=== PATIENT | male | born 1975 | race Caucasian/White ===

== ENCOUNTER 2021-08-06 23:46 | Emergency (ER) | payer OTHER, SELFPAY ==
--- NOTE | 2021-08-06 23:45 | ECG_ITS ---
APPROVED REPORT Exam: Resting ECG HR:90 bpm ECG Measurements Heart Rate 90 AXES ID 144 P 55 QRSd 88 QRS 22 QT 328 T 55 QTc 401 Conclusion Normal sinus rhythm Normal ECG Electronically signed by : Jett Lu MD 08/08/2021 12:38:03
[2021-08-06 23:46] VITALS: BP 134/84; PULSE 88; RESP 16; TEMP 36.9; O2SAT 96; BMI 38.9
[2021-08-07] VITALS (8 sets, daily range): BP systolic 112–169; BP diastolic 71–98; PULSE 68–95; RESP 12–16; TEMP 36.9; O2SAT 94–98
--- NOTE | 2021-08-07 | ECG_ITS ---
APPROVED REPORT Exam: Resting ECG HR:94 bpm ECG Measurements Heart Rate 94 AXES MN 132 P 49 QRSd 82 QRS 31 QT 324 T 58 QTc 405 Conclusion Normal sinus rhythm Normal ECG Electronically signed by : Jett Lu MD 08/08/2021 12:37:59
--- NOTE | 2021-08-07 00:02 | XR_ITS ---
PROCEDURE INFORMATION: Exam: XR Chest Exam date and time: 08/07/2021 12:02 AM Age: 46 years old Clinical indication: Sternal or substernal pain and left-sided; Additional info: Chest pain TECHNIQUE: Imaging protocol: XR of the chest. Views: 2 views. COMPARISON: No relevant prior studies available. FINDINGS: Lungs: Unremarkable. No consolidation. Pleural spaces: No pleural effusion. No pneumothorax. Heart/Mediastinum: Normal heart size. Bones/joints: Mild spondylosis. IMPRESSION: No acute findings.
--- NOTE | 2021-08-07 00:02 | CT_ITS ---
PROCEDURE INFORMATION: Exam: CTA Chest With Contrast Exam date and time: 08/07/2021 12:02 AM Age: 46 years old Clinical indication: Sternal or substernal pain and left-sided; Patient HX: Midsternal to left sided chest pain starting tonight. No prior SX to chest. Nonsmoker TECHNIQUE: Imaging protocol: Computed tomographic angiography of the chest with contrast. 3D rendering (Not supervised by radiologist): MIP and/or 3D reconstructed images were created by the technologist. Radiation optimization: All CT scans at this facility use at least one of these dose optimization techniques: automated exposure control; mA and/or kV adjustment per patient size (includes targeted exams where dose is matched to clinical indication); or iterative reconstruction. Contrast material: ISOVUE; Contrast volume: 70 ml; Contrast route: INTRAVENOUS (IV); COMPARISON: No relevant prior studies available. FINDINGS: Pulmonary arteries: Normal. No pulmonary emboli. Aorta: No thoracic aortic aneurysm or dissection. Lungs: Calcified granuloma in the lingula. No suspicious nodule or mass. No airspace consolidation. No evidence of pneumonia. Pleural spaces: No pneumothorax. No pleural effusion. Heart: No cardiomegaly. No pericardial effusion. Lymph nodes: Unremarkable. No enlarged lymph nodes. Diaphragm: Small hiatal hernia. Bones/joints: Mild spondylosis. No acute fracture. Soft tissues: Unremarkable. IMPRESSION: 1. No evidence of pulmonary embolus. 2. No acute finding within the thorax.
[2021-08-07 00:13] LABS: Basophils # 0.3 K/mm3 (0-0.2); Basophils % 2.2 % (0.1-2.0); Eosinophils # 0.1 K/mm3 (0.0-0.4); Eosinophils % 1.1 % (0.1-12.0); Hemoglobin 14.3 g/dL (14.1-18.0); Lymphocytes # 3.5 K/mm3 (0.7-4.5); Lymphocytes % 29.3 % (10-50); Mean Corpuscular HGB Conc 31.7 g/dL (31.8-35.4); Mean Corpuscular Hemoglobin 28.8 pg (27.0-31.2); Mean Corpuscular Volume 90.8 fl (80-94); Mean Platelet Volume 9.1 fl (7.4-10.4); Monocytes # 0.9 K/mm3 (0.1-1.0); Monocytes % 7.2 % (1.7-9.3); Neutrophils # 7.3 K/mm3 (1.8-7.8); Neutrophils % 60.1 % (37.0-80.0); Platelet Count 231 K/mm3 (142-424); Red Blood Count 4.95 M/mm3 (4.60-6.20); Red Cell Distribution Width 16.2 % (11.5-17.5); White Blood Count 12.1 K/mm3 (4.8-10.8)
--- NOTE | 2021-08-07 00:16 | ECG_ITS ---
APPROVED REPORT Exam: Resting ECG HR:90 bpm ECG Measurements Heart Rate 90 AXES MS 136 P 76 QRSd 84 QRS 38 QT 340 T 55 QTc 415 Conclusion Normal sinus rhythm Normal ECG Electronically signed by : Jett Lu MD 08/08/2021 12:37:55
[2021-08-07 00:35] LABS: Alanine Aminotransferase 42 U/L (12-78); Albumin Level 4.4 g/dl (3.5-5.0); Alkaline Phosphatase 76 U/L (38-126); Anion Gap 13.8 mEq/L (5-15); Aspartate Amino Transferase 35 U/L (17-59); Bilirubin,Direct 0.2 mg/dl (0.0-0.4); Bilirubin,Indirect 0.1 mg/dL (0.0-0.9); Bilirubin,Total 0.3 mg/dl (0.2-1.3); Bilirubin,Unconjugated 0.1 mg/dL (0.0-1.1); Blood Urea Nitrogen 15 mg/dl (9-20); Calcium 9.1 mg/dl (8.4-10.2); Carbon Dioxide 29 mmol/L (22.0-30.0); Chloride 100 mmol/L (98-107); Creatinine Clearance Estimated 127 mL/min (50-200); Estimated Glomerular Filt Rate 71 ml/min (>60); GFR (African American) 86 ML/MIN (>60); Glucose 98 mg/dl (74-100); Potassium 3.8 mmoL/L (3.5-5.1); Sodium 139 mmol/L (136-145); Total Protein,Serum 7.4 g/dl (6.3-8.2)
[2021-08-07 00:41] LABS: C-Reactive Protein 1.6 mg/L (0-4)
[2021-08-07 00:51] LABS: Erythrocyte Sedimentation Rate 22 mm/hr (0-15); Troponin I < 0.01 ng/ml (0.00-0.034)
[2021-08-07 00:54] LABS: Procalcitonin 0.075 ng/mL (0.0-2.0)
--- NOTE | 2021-08-07 02:23 | [facility].EDCP ---
ED Disposition Clinical Impression: Atypical chest pain Disposition: Home, Self-Care Condition on Discharge: Good Instructions: DI for Atypical Chest Pain Additional Instructions: see card this am for follow up Referrals: Provider,Referral, [Primary Care Provider] - - Critical Care Critical Care Time: No Attestation: On 08/06/21, the high probability of a clinically significant, sudden or life threatening deterioration of the following system(s) required my full and direct attention, intervention and personal management. The time I documented below is in addition to time spent performing reported procedures but includes the following listed in this critical care notation. Medical Decision Making - Medical Records Medical records reviewed: Yes: I reviewed the patient's medical records. - Carmelo Inquiry Pt receiving controlled substance: No Vital Signs: 08/06/21 23:46 Temperature 98.5 F Temperature Source Oral Pulse Rate [Left] 88 Respiratory Rate 16 Blood Pressure [Right Arm] 134/84 Blood Pressure Mean [Right Arm] 100 02 Sat by Pulse Oximetry 96 Oxygen Delivery Method Room Air - Lab Data Lab results reviewed: Yes: I reviewed the patient's lab results. Lab Results 08/07/21 00:00: WBC 12.1 H, RBC 4.95, Hgb 14.3, Hct 45.0, MCV 90.8, MCH 28.8, MCHC 31.7 L, RDW 16.2, Plt Count 231, MPV 9.1, Neut % (Auto) 60.1, Lymph % (Auto) 29.3, [place] % (Auto) 7.2, Eos % (Auto) 1.1, Baso % (Auto) 2.2 H, Neut # (Auto) 7.3, Lymph # (Auto) 3.5, [place] # (Auto) 0.9, Eos # (Auto) 0.1, Baso # (Auto) 0.3 H, ESR 22 H 08/07/21 00:00: Sodium 139, Potassium 3.8, Chloride 100, Carbon Dioxide 29, Anion Gap 13.8, BUN 15, Creatinine 1.10, Estimated Creat Clear 127, Estimated GFR 71, Est GFR ( Amer) 86, Glucose 98, Calcium 9.1, Total Bilirubin 0.3, Direct Bilirubin 0.2, Conjugated Bilirubin 0.0, Indirect Bilirubin 0.1, Unconjugated Bilirubin 0.1, AST 35, ALT 42, Alkaline Phosphatase 76, Troponin I < 0.01, C-Reactive Protein 1.6, Total Protein 7.4, Albumin 4.4, Procalcitonin 0.075 08/07/21 00:00: Lipase 102 08/07/21 03:10: Troponin I < 0.01 Result diagrams: 08/07/21 00:00 08/07/21 00:00 Orders (Tests/Meds): ED MEDICATIONS Generic Name Dose Route Start Last Admin Trade Name Freq PRN Reason Stop Dose Admin Sodium Chloride 1,000 mls @ 999 mls/hr 08/07/21 00:15 08/07/21 00:07 Sod Chlor 0.9% 1000ml Bag IV 08/07/21 01:15 999 mls/hr .Q1H1M SUHAIL Administration Nitroglycerin 0.4 mg 08/07/21 00:01 08/07/21 00:04 Nitroglycerin 0.4mg Sl Tablet SL 09/06/21 00:00 0.4 mg Q5MINP PRN Administration Chest Pain Sodium Chloride 8 ml 08/07/21 00:02 Sodium Chloride 0.9% 10ml Vial IV 09/06/21 00:01 NEEDED PRN dilute pepcid Discontinued Medications Generic Name Dose Route Start Last Admin Trade Name Freq PRN Reason Stop Dose Admin Belladonna Alkaloids 60 ml 08/07/21 02:18 08/07/21 02:21 Gi Cocktail 60ml Udc PO 08/07/21 02:19 60 ml ONCE ONE Administration Famotidine 20 mg 08/07/21 00:02 08/07/21 00:07 Famotidine 20mg/2ml Vial IV 08/07/21 00:03 20 mg ONCE ONE Administration Iopamidol 70 ml 08/07/21 00:48 08/07/21 00:49 Iopamidol-370 (76%);100ml Bottle IV 08/07/21 00:49 70 ml ONCE ONE Administration Ketorolac Tromethamine 30 mg 08/07/21 00:02 08/07/21 00:07 Ketorolac 30mg/Ml Vial IV 08/07/21 00:03 30 mg ONCE ONE Administration Metoclopramide HCl 10 mg 08/07/21 00:02 08/07/21 00:07 Metoclopramide Hcl 10mg/2ml Vial IVP 08/07/21 00:03 10 mg ONCE ONE Administration Ondansetron HCl 4 mg 08/07/21 00:05 08/07/21 00:07 Ondansetron 4mg/2ml Vial IV 08/07/21 00:06 4 mg ONCE ONE Administration Sodium Chloride 50 ml 08/07/21 00:48 08/07/21 00:49 0.9 % Sodium Chloride 50 Ml Vial IV 08/07/21 00:49 50 ml ONCE ONE Administration Sodium Chloride 10 ml 08/07/21 00:48 08/07/21 00:49 Sodium Chloride 0.9% 10ml Syr (Rad Only)
[2021-08-07 02:43] LABS: Lipase 102 U/L (23-300)
[2021-08-07 03:36] LABS: Troponin I < 0.01 ng/ml (0.00-0.034)
== END 2021-08-07 04:14 | disposition home or self-care (01) ==
PROVIDERS: Emergency Provider Emergency Medicine
DX: R07.89 Other chest pain (principal); K21.9 Gastro-esophageal reflux disease without esophagitis
CPT/HCPCS: 71046; 71275; 80048; 80076; 83690; 84145; 84484; 85025; 85651; 86140; 93005; 96365; 96375; 99282; J2405; Q9967

== ENCOUNTER 2022-02-24 16:52 | Emergency (ER) | payer OTHER, SELFPAY ==
[2022-02-24 18:10] VITALS: BP 136/92; PULSE 83; RESP 16; TEMP 36.9; O2SAT 96; BMI 41.1
--- NOTE | 2022-02-24 18:13 | HMH.EDUTC ---
[facility] [place] Impression: Viral syndrome, Bronchitis Sciatica Qualifiers: Laterality: right Qualified Code(s): M54.31 - Sciatica, right side Disposition: Home, Self-Care Condition on Discharge: Good Instructions: DI for Sciatica, DI for Acute Bronchitis, DI for Back Pain With Sciatica, Preventing the Spread of Coronavirus Discharge Instructions Additional Instructions: Drink plenty of fluids. Take tylenol or ibuprofen for pain or fever. Take the medications as directed. Follow up with your regular doctor. GO TO THE ER FOR ANY WORSENING SYMPTOMS Quarantine until you know the results of your covid-19 test. Notify your school or workplace of your results and follow their instructions regarding return to work/school. Don't start the oral steroids until tomorrow, since you had the shot here today. Prescriptions: Benzonatate [Benzonatate 100mg cap] 100 mg PO TIDP PRN #30 cap PRN Reason: Cough Transmission Status: Received by [id number] methylPREDNISolone [Medrol] 4 mg PO DIRECTED 6 Days #21 packet Transmission Status: Received by [id number] Azithromycin [Z-Leon 250mg Tab*] 250 mg PO UD DOSE PK #6 tab Transmission Status: Received by [id number] Referrals: Provider,Referral, MD [Primary Care Provider] - Forms: Work/School Release Time of Disposition: 18:44 Medical Decision Making - Medical Records Medical records reviewed: No: I reviewed the patient's medical records. - Carmelo Inquiry Pt receiving controlled substance: No Vital Signs: 02/24/22 18:10 02/24/22 18:48 Temperature 98.5 F 98.5 F Temperature Source Oral Pulse Rate 83 Pulse Rate [Left] 83 Respiratory Rate 16 16 Blood Pressure 136/92 H Blood Pressure [Right Arm] 136/92 H Blood Pressure Mean [Right Arm] 106 02 Sat by Pulse Oximetry 96 Orders (Tests/Meds): ED MEDICATIONS Discontinued Medications Generic Name Dose Route Start Last Admin Trade Name Freq PRN Reason Stop Dose Admin Methylprednisolone Sodium Succinate 125 mg 02/24/22 18:33 02/24/22 18:48 Methylprednisolone Sod Succ 125mg Vial IM 02/24/22 18:34 125 mg ONCE ONE Administration ORDERS Category Date Time Status Covid-19 Nasal PCR ([facility]) Routine Lab 07/12/22 17:44 [place] [facility] [place] - General Stated complaint: Left leg pain and cough Time Seen by Provider: 02/24/22 18:14 - History of Present Illness Provider Complaint: He states that for the past 3 days he has had a worsening cough and sinus congestion. He is also having low back pain that radiates down his right leg. - Related Data Previous Rx's Medication Instructions Recorded Azithromycin [Z-Leon 250mg Tab*] 250 mg PO UD DOSE PK #6 tab 02/24/22 Benzonatate [Benzonatate 100mg 100 mg PO TIDP PRN #30 cap 02/24/22 cap] methylPREDNISolone [Medrol] 4 mg PO DIRECTED 6 Days #21 02/24/22 packet Allergies Allergy/AdvReac Type Severity Reaction Status Date / Time From PHENERGAN Allergy Unknown NA-NAUSEA/V Uncoded 08/03/17 15:20 OMITING [facility] History - Hepatitis A Screen Attestation statement:: This patient has been screened for Hepatitis A risk factors. I have reviewed the patient's past medical history: Yes ROS Obtained: Yes All systems reviewed & no additional complaints - Constitutional Constitutional: Reports as per HPI - Eyes Eyes: Denies eye discharge - ENT Ears, Nose, Mouth, and Throat: Denies dizziness, Denies otalgia, Reports sore throat, Denies vertigo/dizziness - Cardiovascular Cardiovascular: Denies chest pain - Respiratory Respiratory: Reports chest congestion, Reports cough, Denies dyspnea, Denies stridor, Denies wheezing - Musculoskeletal Musculoskeletal: Reports as per HPI - Integumentary/Breasts Skin/Breast: Denies rash Physical Exam - General General appearance: alert, in no apparent distress - Head Head exam: atraumatic, normocephalic, normal i
[2022-02-24 18:48] VITALS: BP 136/92; PULSE 83; RESP 16; TEMP 36.9
== END 2022-02-24 18:54 | disposition home or self-care (01) ==
PROVIDERS: Emergency Provider Nurse Practitioner Family
DX: R09.81 Nasal congestion; Z20.822 Contact with and (suspected) exposure to COVID-19; Z79.82 Long term (current) use of aspirin
CPT/HCPCS: 96372; 99213; C9803; G0463; U0003; U0005

== ENCOUNTER 2022-08-12 19:43 | Emergency (ER) | payer OTHER, SELFPAY ==
[2022-08-12 19:45] VITALS: BP 151/87; PULSE 95; RESP 16; TEMP 37.4; O2SAT 97; BMI 36.6
[2022-08-12 20:22] VITALS: BP 143/89; PULSE 97; O2SAT 95
[2022-08-12 20:25] LABS: Coronavirus 19, PCR Not Detected (NotDetected); Influenza B, PCR Not Detected (NotDetected)
[2022-08-12 20:30] VITALS: BP 151/87; PULSE 99; O2SAT 97
--- NOTE | 2022-08-12 20:43 | XR_ITS ---
PROCEDURE INFORMATION: Exam: XR Chest Exam date and time: 08/12/2022 8:42 PM Age: 47 years old Clinical indication: Patient HX: C/O cough, headache, chills; Additional info: Congestion TECHNIQUE: Imaging protocol: Radiologic exam of the chest. Views: 2 views. COMPARISON: CR XR CHEST 2V 08/07/2021 12:19 AM FINDINGS: Lungs: Unremarkable. No consolidation. Pleural spaces: Unremarkable. No pleural effusion. No pneumothorax. Heart/Mediastinum: Unremarkable. No cardiomegaly. Bones/joints: Unremarkable. IMPRESSION: No acute findings.
[2022-08-12 21:00] VITALS: BP 149/88; PULSE 96; O2SAT 98
[2022-08-12 21:30] VITALS: BP 141/83; PULSE 97; O2SAT 98
--- NOTE | 2022-08-12 21:56 | HMH.EDURI ---
Discharge Plan Disposition Patient Disposition: Home, Self-Care Prescriptions Prescriptions: New oseltamivir [Tamiflu] 75 mg capsule 75 mg PO BID 5 Days Qty: 10 0RF benzonatate 100 mg Capsule 100 mg PO Q8H Qty: 20 0RF prednisone [prednisone] 20 mg tablet 20 mg PO DAILY Qty: 7 0RF No Action azithromycin 250 MG tablet 250 mg PO UD DOSE PK Qty: 6 0RF Rx Instructions: Take two (2) tablets today, then one (1) tablet days #2 thru #5 methylprednisolone 4 MG tablets,dose pack 4 mg PO DIRECTED 6 Days Qty: 21 0RF benzonatate 100 MG capsule 100 mg PO TIDP PRN (Reason: Cough) Qty: 30 0RF Referrals Follow up/Referrals: Provider,Referral, MD [Primary Care Provider] - See instructions Clinical Impressions Clinical Impression: Influenza Instructions Patient Instructions: DI for Influenza -- Adult Discharge ED Provider: Aldo Douglas URI/Sore Throat HPI General Chief Complaint: Upper Respiratory Infection Stated Complaint: cough, body aches weak Time Seen by Provider: 08/12/22 21:10 Mode of Arrival: Ambulatory Source of Information: Patient and Medical Record Limitations: No Limitations Description of Symptoms (Recalled from ER Triage Doc. by RN): pt c/o cough,body aches, Tirado, chills that started today History of Present Illness HPI Narrative: cough and congestion with tirado and chills - started today - no known exposure - no tob Complaint: cough and nasal congestion Onset (ago): day(s) Duration: intermittent Severity: moderate Able to tolerate fluids by mouth: Yes Associated symptoms: denies other symptoms Related Data Previous Rx's Medication Instructions Recorded azithromycin 250 mg tablet 250 mg PO UD DOSE PK #6 tabs 02/24/22 benzonatate 100 mg capsule 100 mg PO TIDP PRN Cough #30 caps 02/24/22 methylprednisolone 4 mg tablets in 4 mg PO DIRECTED 6 days #21 02/24/22 a dose pack packets benzonatate 100 mg capsule 100 mg PO Q8H #20 caps 08/12/22 oseltamivir 75 mg capsule (Tamiflu) 75 mg PO BID 5 days #10 caps 08/12/22 prednisone 20 mg tablet 20 mg PO DAILY #7 tabs 08/12/22 Allergies Allergy/AdvReac Type Severity Reaction Status Date / Time From PHENERGAN Allergy Unknown NA-NAUSEA/V Uncoded 08/03/17 15:20 OMITING PFSH PFSH Disclaimer: The information contained in this section may have been updated after the patient was seen, as this information can be updated by other users. Social History Smoking Status: Never smoker alcohol intake: never current occupational status: employed Travel in the last 8 weeks: None ROS Obtained: Yes All systems reviewed & no additional complaints except as documented Physical Exam General General appearance: alert Head Head exam: normocephalic Eye Eye exam: Present PERRL and EOMI ENT ENT exam: Present mucous membranes moist Neck Neck exam: Present trachea midline Respiratory Respiratory exam: Present normal lung sounds bilaterally; Absent respiratory distress Cardiovascular Cardiovascular exam: Present regular rate Abdominal Exam Abdominal exam: Present soft Extremities Exam Extremities exam: Present full ROM Neurological Exam Neurological exam: Present alert, oriented X3 and CN II-XII intact Skin Skin exam: Absent rash Medical Decision Making Medical Records Medical records reviewed: Yes I reviewed the patient's medical records. Carmelo Inquiry Pt receiving controlled substance: No Vital Signs: 08/12/22 19:45 08/12/22 20:22 08/12/22 20:30 Temperature 99.4 F Temperature Source Oral Pulse Rate 97 H 99 H Pulse Rate [Right] 95 H Respiratory Rate 16 Blood Pressure 143/89 H 151/87 H Blood Pressure [Right Arm] 151/87 H Blood Pressure Mean 106 111 Blood Pressure Mean [Right Arm] 108 02 Sat by Pulse Oximetry 97 95 97 08/12/22 21:00 08/12/22 21:30 Temperature Temperature Source Pulse Rate 96 H 97 H Pulse Rate [Right] Respiratory Rate Blood Pressure 149/88 H
[2022-08-12 22:28] LABS: Influenza A, PCR Detected (NotDetected)
[2022-08-12 22:46] VITALS: BP 139/80; PULSE 90; RESP 16; TEMP 37.1; O2SAT 98
== END 2022-08-12 22:47 | disposition home or self-care (01) ==
PROVIDERS: Emergency Provider Emergency Medicine
DX: J10.1 Influenza due to other identified influenza virus with other respiratory manifestations (principal); M79.10 Myalgia, unspecified site; R51.9 Headache, unspecified; Z20.822 Contact with and (suspected) exposure to COVID-19; Z79.51 Long term (current) use of inhaled steroids; Z79.52 Long term (current) use of systemic steroids; Z88.8 Allergy status to other drugs, medicaments and biological substances
CPT/HCPCS: 71046; 99283; C9803; U0003; U0005